=== PATIENT | female | born 1985 | race Two or more races ===

== ENCOUNTER 2017-04-14 19:27 | Emergency (ER) | payer OTHER ==
[2017-04-14 19:33] VITALS: BP 124/74; PULSE 66; TEMP 98.4; BMI 39.2
[2017-04-14] MEDS ORDERED: SODIUM CHLORIDE 500 ML IV STA (20:41)
[2017-04-14] MEDS ORDERED: CLINDAMYCIN 600MG PREMIX IVPB 50 ML IVPB ONE ×2 (20:41→20:55)
--- NOTE | 2017-04-14 20:47 | PDOC ---
History of Present Illness - General Chief Complaint: Abscess Boil Stated Complaint: PAIN, ACUTE Time Seen by Provider: 04/14/17 19:51 History Source: Patient Exam Limitations: No Limitations - History of Present Illness Initial Comments: 04/14/17 20:42 31yo Female patient w/ PmHx: MRSA, breast abscesses presents to ED c/o right breast pain with infection. Patient state 2 weeks ago, she was seen by PMD and given Amoxicillin for small right breast abscess. Patient states symptoms improved, however, 3 days ago symptoms returned worse. She contacted her breast surgeon, but was told to go to nearest ED due to possible cellulitis. Patient denies fever, cough, CP, Back pain, n/v/d, or any other complaints at this time. Timing/Duration: reports: changing over time, getting worse Severity: Yes: moderate Location: reports: torso (Right Breast) Respiratory Risk Factors: denies: no cause identified, exposure to illness, exposure to allergen, foods, insect bite, insect sting, medications, pollen, soaps, other Modifying Factors: worse with: antihistamine, calamine lotion, prednisone, scratching, topical steriods, other Associated Symptoms: denies: denies symptoms, blisters, change in skin texture, edema, fever, flushing, headache, hives, jaundice, malaise, nasal congestion, numbness, pallor, paresthesia, petechiae, rash, sore throat, swelling/mass/lumps , tingling, other Past History - Travel Traveled outside of the country in the last 30 days: No Close contact w/someone who was outside of country & ill: No - Past Medical History Allergies/Adverse Reactions: Allergies Allergy/AdvReac Type Severity Reaction Status Date / Time shellfish derived Allergy Verified 12/10/15 21:21 Home Medications: Ambulatory Orders Ibuprofen [Motrin -] 600 mg PO QID #30 tablet 12/10/15 Cephalexin Monohydrate [Keflex -] 500 mg PO BID #14 capsule 04/14/17 Sulfamethoxazole/Trimethoprim [Bactrim Ds -] 1 tab PO DAILY #10 tablet 04/14/17 Asthma: No Cancer: No Cardiac Disorders: No Diabetes: No HTN: No Seizures: No Thyroid Disease: No - Surgical History Abdominal Surgery: Yes (HERNIA REPAIR.) - Reproductive History (#): 3 Para: 2 Ectopic : Yes Therapeutic (s) & number: No Spontaneous : 1 - Suicide/Smoking/Psychosocial Hx Smoking History: Current every day smoker Have you smoked in the past 12 months: No Number of Cigarettes Smoked Daily: 5 Information on smoking cessation initiated: No Hx Alcohol Use: No Drug/Substance Use Hx: No Hx Substance Use Treatment: No Review of Systems - Review of Systems Able to Perform ROS?: Yes Is the patient limited Norwegian proficient: No Integumentary: Yes: Erythema (Right Breast), Lumps, Other (Tenderness) All Other Systems: Reviewed and Negative *Physical Exam - Vital Signs Last Vital Signs Temp Pulse Resp BP Pulse Ox 98.4 F 66 17 124/74 99 04/14/17 19:30 04/14/17 19:30 04/14/17 19:30 04/14/17 19:30 04/14/17 19:30 - Physical Exam General Appearance: Yes: Nourished, Appropriately Dressed, Mild Distress. No: Apparent Distress, Moderate Distress, Severe Distress Neck: positive: Trachea midline, Supple. negative: Stridor, Lymphadenopathy (R) , Lymphadenopathy (L) Respiratory/Chest: positive: Lungs Clear, Normal Breath Sounds. negative: Chest Tender, Respiratory Distress, Accessory Muscle Use, Labored Respiration, Rapid RR, Rhonchi, Stridor Cardiovascular: positive: Regular Rhythm, Regular Rate Musculoskeletal: positive: Normal Inspection. negative: CVA Tenderness Extremity: positive: Normal Capillary Refill, Normal Inspection, Normal Range of Motion. negative: Pedal Edema, Swelling, Calf Tenderness, Erythema, Inflammation Integumentary: positive: Normal Color, Dry, Warm, Erythema (Right Breast), Other (Right breast with induration beneath areola, moderate redness extending to medial aspect, moderate tenderness. No nipple discharge or drainage, or rippling of breast tissue noted.) Neurologic: positive: traffic recorder II-XII NML intact, Fully Oriented, Alert, Normal Mood/ Affect, Normal Response, Motor Strength 11/26 ED Treatment Course - LABORATORY CBC & Chemistry Diagram: 04/14/17 20:58 04/14/17 20:51 *DC/Admit/Observation/Transfer Diagnosis at time of Disposition: Cellulitis of right breast - Discharge Dispostion Disposition: HOME Condition at time of disposition: Stable Admit: No - Prescriptions Prescriptions: Sulfamethoxazole/Trimethoprim [Bactrim Ds -] 1 tab PO DAILY #10 tablet Cephalexin Monohydrate [Keflex -] 500 mg PO BID #14 capsule - Referrals Referrals: Lamonte Zhu MD [Primary Care Provider] - - Patient Instructions Printed Discharge Instructions: DI for Skin Abscess Additional Instructions: Follow up with your primary care provider and you breast surgeon. Call to schedule appointment. Take medications as prescribed. Take Keflex 500mg every 12 hours (2 tabs) starting tomorrow and Bactrim 1 tablet daily. Print Language: SINHALA
[2017-04-14 21:07] LABS: BASOPHIL 0.6 % (0-2.0); MCH 28.8 pg (25.7-33.7); MCHC 33.4 g/dl (32.0-36.0); MEAN CELL VOLUME 86.2 fl (80-96); NEUTROPHILS 64.9 % (42.8-82.8); PLATELET COUNT 333 K/MM3 (134-434); RDW 13.9 % (11.6-15.6); WHITE BLOOD COUNT 11.6 K/mm3 (4.0-10.0)
[2017-04-14 21:30] LABS: ALBUMIN 3.3 g/dl (3.4-5.0); ANION GAP 6 (8-16); BILIRUBIN,TOTAL 0.2 mg/dL (0.2-1.0); CALCIUM 8.6 mg/dL (8.5-10.1); CO2 25 mmol/L (21-32); CREATININE 0.7 mg/dL (0.55-1.02); GLUCOSE,RANDOM 121 mg/dL (74-106); SGOT/AST 10 U/L (15-37); SGPT/ALT 21 U/L (12-78)
[2017-04-14 21:32] LABS: ALK PHOS 125 U/L (45-117); TOT PROT 6.6 g/dl (6.4-8.2)
[2017-04-14] MEDS ORDERED: CEPHALEXIN MONOHYDRATE 500 MG CAPSULE (UD) PO ONE (21:49)
[2017-04-14] MEDS ORDERED: SULFAMETHOXAZOLE/TRIMETHOPRIM 800MG/160MG D.S. TABLET PO ONE ×2 (21:49→21:50)
[2017-04-14] MEDS ORDERED: CEPHALEXIN MONOHYDRATE 250 MG CAPSULE (FP) ONE (21:55)
[2017-04-14] MEDS ORDERED: SULFAMETHOXAZOLE/TRIMETHOPRIM 800MG/160MG D.S. TABLET ONE (21:55)
== END 2017-04-14 22:04 | disposition home or self-care (01) ==
LOC: JER 19:27
PROC: 3E0337Z Introduction of Electrolytic and Water Balance Substance into Peripheral Vein, Percutaneous Approach (ICD-10-PCS; principal; 2017-04-14)
PROC: 3E03329 Introduction of Other Anti-infective into Peripheral Vein, Percutaneous Approach (ICD-10-PCS; 2017-04-14)
DX: N61.1 Abscess of the breast and nipple (principal); Z86.14 Personal history of Methicillin resistant Staphylococcus aureus infection; F17.210 Nicotine dependence, cigarettes, uncomplicated
CPT/HCPCS: 36415; 80053; 85025; 87040; 99283-25

== ENCOUNTER 2018-09-11 11:17 | Day surgery (SDC) | payer OTHER ==
[2018-09-11 11:31] VITALS: BMI 43.0
--- NOTE | 2018-09-11 11:52 | PDOC ---
History of Present Illness - General Chief Complaint: Vaginal Bleeding Stated Complaint: VAGINAL SPOTTING POSTIVE PREG Time Seen by Provider: 09/11/18 11:51 History Source: Patient Exam Limitations: No Limitations - History of Present Illness Initial Comments: 09/11/18 12:46 33 year old female A1 with PMH ectopic , irregular periods presented to ED for left sided pelvic pain x1 week and positive urine test. Pt stated "I just want to know if it is an ectopic or not, I am going to terminate this anyways." Pt admitted vaginal spotting today, nipple tenderness x5 days. Pt stated she took positive home test x2 days ago. LMP early August, lasted 3 days, shorter than normal. LMP before August was May when she had her period two times, each lasting 7 days. [facility] Past History - Past Medical History Allergies/Adverse Reactions: Allergies Allergy/AdvReac Type Severity Reaction Status Date / Time shellfish derived Allergy Verified 09/11/18 11:28 Home Medications: Ambulatory Orders Ibuprofen [Motrin -] 600 mg PO QID #30 tablet 12/10/15 Cephalexin Monohydrate [Keflex -] 500 mg PO BID #14 capsule 04/14/17 Sulfamethoxazole/Trimethoprim [Bactrim Ds -] 1 tab PO DAILY #10 tablet 04/14/17 Asthma: No Cancer: No Cardiac Disorders: No COPD: No Diabetes: No HTN: No Seizures: No Thyroid Disease: No - Surgical History Abdominal Surgery: Yes (HERNIA REPAIR.) - Reproductive History (#): 3 Para: 2 Ectopic : Yes Therapeutic (s) & number: No Spontaneous : 1 - Suicide/Smoking/Psychosocial Hx Smoking History: Former smoker Have you smoked in the past 12 months: No Number of Cigarettes Smoked Daily: 5 If you are a former smoker, when did you quit?: 1.5 years ago Information on smoking cessation initiated: No Hx Alcohol Use: No Drug/Substance Use Hx: No Hx Substance Use Treatment: No Review of Systems - Review of Systems Able to Perform ROS?: Yes Comments:: 09/11/18 12:48 General: denied fever, chills, night sweats, generalized weakness. HEENT: denied sore throat, rhinorrhea, ear pain. Heart: denied chest pain, palpitations, syncope, lower extremity swelling, diaphoresis. Respiratory: denied shortness of breath, cough, sputum production, hemoptysis. Abdomen: denied abdominal pain, nausea, vomiting, diarrhea, constipation, blood in stool. : admitted to vaginal spotting, left pelvic pain, nipple tenderness. denied dysuria, increased urinary frequency, hematuria, urinary incontinence, flank pain. Back: denied back pain. Musculoskeletal: denied joint pain, muscle pain, joint swelling. Neurological: denied headache, dizziness, numbness, tingling, weakness. Skin: denied rash, laceration, abrasion. *Physical Exam - Vital Signs Last Vital Signs Temp Pulse Resp BP Pulse Ox 98.8 F 66 18 120/62 97 09/11/18 11:28 09/11/18 11:28 09/11/18 11:28 09/11/18 11:28 09/11/18 11:28 - Physical Exam Comments: 09/11/18 12:49 Constitutional: Well-nourished, Well-developed, appearing stated age. HEENT: head is normocephalic, atraumatic. EOMI. PERRLA. Neck: supple. Full ROM. Heart: regular rhythm. no murmurs, rubs or gallops. Lungs: clear to auscultation bilaterally. no crackles, rhonchi or wheezing. no stridor. Abdomen: soft. mild LLQ tenderness to palpation. normal bowel sounds. no rebound , guarding, masses. Pelvic: normal external genitalia. normal vaginal canal. cervix unable to be competely visualized secondary to body habitus. no blood in vault. no CMT. no adnexal tenderness bilaterally. Extremities: Peripheral pulses intact. No lower extremity edema. Neurological: CN 2-12 grossly intact. Moves all four extremities. Psych: awake, alert, oriented x3. Follows commands. Answers questions appropriately. Moderate Sedation - Procedure Monitoring Vital Signs: Procedure Monitoring Vital Signs Temperature 98.8 F 09/11/18 11:28 Pulse Rate 66 09/11/18 11:28 Respiratory Rate 18 09/11/18 11:28 Blood Pressure 120/62 09/11/18 11:28 O2 Sat by Pulse Oximetry (%) 97 09/11/18 11:28 ED Treatment Course - LABORATORY CBC & Chemistry Diagram: 09/11/18 12:36 09/11/18 12:36 Medical Decision Making - Medical Decision Making 09/11/18 12:50 33 year old female A1 with PMH ectopic presented to ED for left sided pelvic pain x1 week, nipple tenderness x5 days, vaginal spotting today. Pt stated she plans to terminate this . Initial Vital Signs Temp Pulse Resp BP Pulse Ox 98.8 F y 66 18 y 120/62 97 09/11/18 11:28 09/11/18 11:28 09/11/18 11:28 09/11/18 11:28 09/11/18 11:28 Afebrile. No tachycardia. No tachypnea. No hypotension. No hypoxia on room air. o Labs ordered: CBC, CMP, beta quant, T/S, coags c Imaging ordered: TVUS g Medications ordered: tylenol 650 mg PO o Past T/S: B+ - Will repeat - Expect to not give Rhogam 09/11/18 13:13 CBC WBC 9.3 K/mm3 (4.0-10.0) 09/11/18 12:36 RBC 4.81 M/mm3 (3.60-5.2) 09/11/18 12:36 Hgb 14.1 GM/dL (10.7-15.3) 09/11/18 12:36 Hct 41.2 % (32.4-45.2) 09/11/18 12:36 MCV 85.8 fl (80-96) 09/11/18 12:36 MCH 29.4 pg (25.7-33.7) 09/11/18 12:36 MCHC 34.3 g/dl (32.0-36.0) 09/11/18 12:36 RDW 14.4 % (11.6-15.6) 09/11/18 12:36 Plt Count 333 K/MM3 (134-434) 09/11/18 12:36 MPV 7.7 fl (7.5-11.1) 09/11/18 12:36 Absolute Neuts (auto) 6.3 K/mm3 (1.5-8.0) 09/11/18 12:36 Neutrophils % 67.0 % (42.8-82.8) 09/11/18 12:36 Lymphocytes % 28.4 % (8-40) 09/11/18 12:36 Monocytes % 2.9 % (3.8-10.2) L 09/11/18 12:36 Eosinophils % 1.3 % (0-4.5) 09/11/18 12:36 Basophils % 0.4 % (0-2.0) 09/11/18 12:36 Nucleated RBC % 0 % (0-0) 09/11/18 12:36 No leukocytosis. No anemia. Urine Test Results Urine Color Yellow 09/11/18 12:32 Urine Appearance Slcloudy 09/11/18 12:32 Urine pH 7.0 (5.0-8.0) 09/11/18 12:32 Ur Specific [place] 1.025 (1.010-1.035) 09/11/18 12:32 Urine Protein Negative (NEGATIVE) 09/11/18 12:32 Urine Glucose (UA) Negative (NEGATIVE) 09/11/18 12:32 Urine Ketones Negative (NEGATIVE) 09/11/18 12:32 Urine Blood Negative (NEGATIVE) 09/11/18 12:32 Urine Nitrite Negative (NEGATIVE) 09/11/18 12:32 Urine Bilirubin Negative (<2.0 mg/dL) 09/11/18 12:32 Ur Leukocyte Esterase Negative (NEGATIVE) 09/11/18 12:32 Negative for UTI. No blood in urine. 09/11/18 13:26 INR, PTT INR 1.03 (0.83-1.09) 09/11/18 12:36 Normal coags. 09/11/18 13:43 c TVUS report: left adnexal ectopic at 6 weeks with gestational sac, pole and yolk sac. HR 142 bpm. no free pelvic fluid. - Pending beta Quant EKG ordered for admission. 09/11/18 14:03 CMP Sodium 137 mmol/L (136-145) 09/11/18 12:36 Potassium 4.1 mmol/L (3.5-5.1) 09/11/18 12:36 Chloride 104 mmol/L (98-107) 09/11/18 12:36 Carbon Dioxide 26 mmol/L (21-32) 09/11/18 12:36 Anion Gap 7 MMOL/L (8-16) L 09/11/18 12:36 BUN 9 mg/dL (7-18) 09/11/18 12:36 Creatinine 0.7 mg/dL (0.55-1.3) 09/11/18 12:36 Creat Clearance w eGFR > 60 (>60) 09/11/18 12:36 Random Glucose 101 mg/dL (74-106) 09/11/18 12:36 Calcium 8.4 mg/dL (8.5-10.1) L 09/11/18 12:36 Total Bilirubin 0.3 mg/dL (0.2-1) 09/11/18 12:36 AST 14 U/L (15-37) L 09/11/18 12:36 ALT 25 U/L (13-61) 09/11/18 12:36 Alkaline Phosphatase 106 U/L (45-117) 09/11/18 12:36 Total Protein 7.3 g/dl (6.4-8.2) 09/11/18 12:36 Albumin 3.7 g/dl (3.4-5.0) 09/11/18 12:36 Beta HCG, Quant y 5440.7 mIU/ml 09/11/18 12:36 No electrolyte abnormalities. No DAISY. No transaminitis. o B-quant >5000. r OB air pollution engineer paged. EKG performed at 1357: rate 61, regular rhythm, low voltage, normal axis, nonspecific ST changes. 09/11/18 14:15 Vital Signs Temperature 98.2 F 09/11/18 14:09 Pulse Rate y 68 09/11/18 14:09 Respiratory Rate 18 09/11/18 14:09 Blood Pressure y 120/64 09/11/18 14:09 O2 Sat by Pulse Oximetry (%) 99 09/11/18 14:09 Pt hemodynamically stable. Reported mild pain. No increase in vaginal bleeding from spotting. Ectopic likely not ruptured - no anemia, no vital sign changes, no free fluid in pelvis on US. 09/11/18 14:[address] Hennessy about the case, she stated she will come to ED to evaluate the patient. 09/11/18 15:29 Dr. Hennessy at bedside for evaluation of patient. 09/11/18 15:36 Dr. Hennessy recs surgery. Pt last ate at 1300 today. Surgery planned for 2100 today. Pt admitted via [facility]. T/S - B+ - No Rhogam needed 09/11/18 16:31 Dr. Hennessy stated surgery is an emergency procedure and will be performed now. Pt informed. *DC/Admit/Observation/Transfer Diagnosis at time of Disposition: Ectopic - Discharge Dispostion Condition at time of disposition: Guarded Decision to Admit order: Yes - Referrals - Patient Instructions - Post Discharge Activity
--- NOTE | 2018-09-11 11:57 | PDOC ---
Attending Attestation - Resident Resident Name: Maryanne Lane - ED Attending Attestation I have performed the following: I have examined & evaluated the patient, The case was reviewed & discussed with the resident, I agree w/resident's findings & plan, Exceptions are as noted - HPI HPI: 33 yo F history prior ectopic presents with positive home test, LLQ pain. She states it felt similar to her prior ectopic, so she sought evaluation. Denies vomiting, diarrhea, fever. Currently pain is minimal. + Spotting. - Physicial Exam PE: GENERAL: Awake, alert, and fully oriented, in no acute distress HEAD: No signs of trauma EYES: PERRLA, EOMI, sclera anicteric, conjunctiva clear ENT: Auricles normal inspection, hearing grossly normal, nares patent, oropharynx clear without exudates. Moist mucosa NECK: Normal ROM, supple, no lymphadenopathy, JVD, or masses LUNGS: Breath sounds equal, clear to auscultation bilaterally. No wheezes, and no crackles HEART: Regular rate and rhythm, normal S1 and S2, no murmurs, rubs or gallops ABDOMEN: Soft, nontender, normoactive bowel sounds. No guarding, no rebound. No masses EXTREMITIES: Normal range of motion, no edema. No clubbing or cyanosis. No cords, erythema, or tenderness NEUROLOGICAL: Cranial nerves II through XII grossly intact. Normal speech, normal gait. Motor and sensation intact SKIN: Warm, Dry, normal turgor, no rashes or lesions noted. - Medical Decision Making Pt found to have L ectopic with FHM. Will d/w test preparer. Last ectopic was managed at [facility], patient does not have a test preparer at this hospital.
[2018-09-11 13:06] LABS: BASO % 0.4 % (0-2.0); EOS % 1.3 % (0-4.5); HEMATOCRIT 41.2 % (32.4-45.2); HEMOGLOBIN 14.1 GM/dL (10.7-15.3); LYMPH % 28.4 % (8-40); MCH 29.4 pg (25.7-33.7); MCHC 34.3 g/dl (32.0-36.0); MEAN CELL VOLUME 85.8 fl (80-96); MEAN PLT VOLUME 7.7 fl (7.5-11.1); MONO % 2.9 % (3.8-10.2); PLATELET COUNT 333 K/MM3 (134-434); RBC 4.81 M/mm3 (3.60-5.2); RDW 14.4 % (11.6-15.6); WHITE BLOOD COUNT 9.3 K/mm3 (4.0-10.0)
[2018-09-11 13:10] LABS: URINE APPEARANCE SLCLOUDY; URINE BILIRUBIN NEGATIVE (<2.0 mg/dL); URINE COLOR YELLOW; URINE GLUCOSE (UA) NEGATIVE (NEGATIVE); URINE KETONE NEGATIVE (NEGATIVE); URINE LEUK ESTERASE NEGATIVE (NEGATIVE); URINE NITRITE NEGATIVE (NEGATIVE); URINE PROTEIN NEGATIVE (NEGATIVE)
[2018-09-11 13:21] LABS: INR 1.03 (0.83-1.09); PROTHROMBIN TIME (PATIENT) 12.2 SEC (9.7-13.0)
[2018-09-11 13:24] LABS: ACTIVATED PTT 29.2 SECONDS (25.2-36.5)
[2018-09-11] MEDS ORDERED: ACETAMINOPHEN 325 MG TABLET (FP) PO ONE (13:33)
[2018-09-11 13:41] LABS: ALBUMIN 3.7 g/dl (3.4-5.0); ALK PHOS 106 U/L (45-117); ANION GAP 7 MMOL/L (8-16); BILIRUBIN,TOTAL 0.3 mg/dL (0.2-1); BLOOD UREA NITROGEN 9 mg/dL (7-18); CALCIUM 8.4 mg/dL (8.5-10.1); CHLORIDE 104 mmol/L (98-107); CO2 26 mmol/L (21-32); CREATININE 0.7 mg/dL (0.55-1.3); GLUCOSE,RANDOM 101 mg/dL (74-106); POTASSIUM 4.1 mmol/L (3.5-5.1); SGOT/AST 14 U/L (15-37); SGPT/ALT 25 U/L (13-61); SODIUM 137 mmol/L (136-145); TOT PROT 7.3 g/dl (6.4-8.2)
[2018-09-11] MEDS ORDERED: ACETAMINOPHEN 325 MG TABLET (FP) ONE (14:34)
--- NOTE | 2018-09-11 16:31 | CON.OBG ---
Consult Consult Specialty:: FURNITURE FINISHER Reason for Consultation:: Ectopic - History of Present Illness Chief Complaint: Abdominal pain in History of Present Illness: 33 year old female A1 with PMH ectopic , irregular periods presented to ED for left sided pelvic pain x1 week and positive urine test. Pt stated "I just want to know if it is an ectopic or not, I am going to terminate this anyways." Pt admitted vaginal spotting today, nipple tenderness x5 days. Pt stated she took positive home test x2 days ago. LMP early August, lasted 3 days, shorter than normal. LMP before August was May when she had her period two times, each lasting 7 days. [facility] I came to see patient; she's sitting comfortably on a chair. She denies any vaginal bleeding except for abdominal pain. - History Source History Provided By: Patient Limitations to Obtaining History: No Limitations - Past Medical History ...LMP: 02/22/15 ...: Yes ...: 5 ...Para: 3 Infectious Disease: Yes: STD's (trichomonas, txed) - Past Surgical History Additional Surgical History: Prior Laparoscopic salpingostomy - Alcohol/Substance Use Hx Alcohol Use: No History of Substance Use: reports: None - Smoking History Smoking history: Former smoker Have you smoked in the past 12 months: No Aproximately how many cigarettes per day: 5 If you are a former smoker, when did you quit?: 1.5 years ago - Social History Usual Living Arrangement: With Significant Other History of Recent Travel: No Home Medications - Allergies Allergies/Adverse Reactions: Allergies Allergy/AdvReac Type Severity Reaction Status Date / Time shellfish derived Allergy Verified 09/11/18 11:28 - Home Medications Home Medications: Ambulatory Orders Ibuprofen [Motrin -] 600 mg PO QID #30 tablet 12/10/15 Cephalexin Monohydrate [Keflex -] 500 mg PO BID #14 capsule 04/14/17 Sulfamethoxazole/Trimethoprim [Bactrim Ds -] 1 tab PO DAILY #10 tablet 04/14/17 Family Disease History - Family Disease History Family History: Unremarkable Review of Systems - Review of Systems Constitutional: reports: No Symptoms Eyes: reports: No Symptoms HENT: reports: No Symptoms Neck: reports: No Symptoms Cardiovascular: reports: No Symptoms Respiratory: reports: No Symptoms Gastrointestinal: reports: No Symptoms Genitourinary: reports: Pain Breasts: reports: No Symptoms Reported Musculoskeletal: reports: No Symptoms Integumentary: reports: No Symptoms Neurological: reports: No Symptoms Endocrine: reports: No Symptoms Hematology/Lymphatic: reports: No Symptoms Psychiatric: reports: No Symptoms Pain Intensity: 3 Physical Exam-CALIBRATOR BAROMETERS Vital Signs: Vital Signs Temperature 98.2 F 09/11/18 14:09 Pulse Rate 68 09/11/18 14:09 Respiratory Rate 18 09/11/18 14:09 Blood Pressure 120/64 09/11/18 14:09 O2 Sat by Pulse Oximetry (%) 99 09/11/18 14:09 Constitutional: Yes: Well Nourished Eyes: Yes: Conjunctiva Clear HENT: Yes: Atraumatic Neck: Yes: Supple Cardiovascular: Yes: Regular Rate and Rhythm Respiratory: Yes: Regular Gastrointestinal: Yes: Normal Bowel Sounds Pelvis: Yes: WNL External Genitalia: Yes: Normal Vaginal Exam: Yes: Normal Cervix: Yes: Cerv Motion Tenderness Musculoskeletal: Yes: WNL Extremities: Yes: WNL Neurological: Yes: Alert, Oriented ...Motor Strength: WNL Psychiatric: Yes: Alert, Oriented Labs: CBC, BMP 09/11/18 12:36 09/11/18 12:36 Assessment/Plan Tubal Pre op for laparoscopic salpingectomy Consent signed Anesthesia to see patient
[2018-09-11] MEDS ORDERED: PROPOFOL 20 ML ONE (16:55)
[2018-09-11] MEDS ORDERED: SUCCINYLCHOLINE CHLORIDE 200 MG/10 ML VIAL ONE (16:56)
[2018-09-11] MEDS ORDERED: MIDAZOLAM HCL 2 MG/2 ML SINGLE DOSE VIAL ONE (16:56)
[2018-09-11] MEDS ORDERED: ROCURONIUM BROMIDE 50 MG/5 ML VIAL ONE (17:20)
[2018-09-11] MEDS ORDERED: ceFAZolin SODIUM 1 GM VIAL ONE (17:26)
[2018-09-11] MEDS ORDERED: DEXAMETHASONE SOD PHOSPHATE 4 MG/1 ML VIAL ONE (17:59)
[2018-09-11] MEDS ORDERED: GLYCOPYRROLATE 0.2 MG/1 ML VIAL ONE (18:02)
[2018-09-11] MEDS ORDERED: NEOSTIGMINE METHYLSULFATE 0.5 MG/ML - 10 ML MDV ONE (18:02)
--- NOTE | 2018-09-11 18:17 | OP ---
Operative Note - Note: Operative Date: 09/11/18 Pre-Operative Diagnosis: Left tubal Operation: Laparoscopic left salpingectomy Findings: Left tubal Post-Operative Diagnosis: Same as Pre-op Surgeon: Zoe Hennessy Short Story Writer: Storm Tucker Anesthesia: General Specimens Removed: Left fallopian tube Estimated Blood Loss (mls): 5
--- NOTE | 2018-09-11 18:19 | SURG ---
Surgery Service Center Representative Note Service Center Representative: Storm Tucker PA-C Date of Service: 09/11/18 Diagnosis: Ectopic Procedure: Laprascopic LEFT salpingectomy I was present for the entirety of the operative procedure. For further detail, please refer to operative report. Visit type - Case Type Case Type: ED Admission - Emergency Emergency Visit: Yes Care time: The patient presented to the Emergency Department on the above date and was hospitalized for further evaluation of their emergent condition. - New patient This patient is new to me today: Yes Date on this admission: 09/11/18
[2018-09-11] MEDS ORDERED: oxyCODONE HCL 5 MG TABLET PO PRN (18:20)
[2018-09-11] MEDS ORDERED: ONDANSETRON 4 MG/2 ML VIAL IVPUSH PRN (18:20)
[2018-09-11] MEDS ORDERED: ACETAMINOPHEN INJECTION 100 ML IVPB ONE (18:23)
[2018-09-11] MEDS ORDERED: ACETAMINOPHEN 1000 MG/100 ML VIAL (NON FORMULARY) IVPB ONE (18:30)
[2018-09-11] MEDS ORDERED: LACTATED RINGERS SOLUTION 1,000 ML IV SCH (18:30)
[2018-09-11 23:34] VITALS: BP 114/59; PULSE 90; TEMP 98.7
--- NOTE | 2018-09-12 11:04 | EKG ---
Test Reason : Blood Pressure : / mmHG Vent. Rate : 061 BPM Atrial Rate : 061 BPM P-R Int : 130 ms QRS Dur : 088 ms QT Int : 414 ms P-R-T Axes : 061 007 -19 degrees QTc Int : 416 ms NORMAL SINUS RHYTHM LOW VOLTAGE QRS BORDERLINE ECG WHEN COMPARED WITH ECG OF 02-APR-2005 16:48, T WAVE INVERSION MORE EVIDENT IN INFERIOR LEADS T WAVE AMPLITUDE HAS DECREASED IN ANTERIOR LEADS Confirmed by MD RONA, TASIA ([id number]) on 09/12/2018 11:04:08 AM Referred By: Confirmed By:TASIA REA MD
--- NOTE | 2018-09-13 13:18 | PATH ---
Surgical Pathology Report Patient Name: CHRISTOPHER PATTON Med. Rec. #: [id number] /Age/Gender: 1985 (Age: 33) / F Account: [id number] Location: AMBULATORY SURG Taken: 09/11/2018 Received: 09/12/2018 Reported: 09/13/2018 Physicians: Zoe Hennessy M.D. PHYSICIAN EMERGENCY DEPT Specimen(s) Received LEFT FALLOPIAN TUBE, ECTOPIC Clinical History Ectopic Final Diagnosis FALLOPIAN TUBE, LEFT, LAPAROSCOPIC SALPINGECTOMY: CHORIONIC VILLI IN A BACKGROUND OF HEMORRHAGE PRESENT WITHIN THE FALLOPIAN TUBE, CONSISTENT WITH ECTOPIC . Electronically Signed Catina Ayers M.D. Gross Description Received in formalin labeled "left fallopian tube," is a 5 cm in length dilated, fimbriated fallopian tube. The outer surface is newton purple and smooth. Sectioning reveals a dilated lumen containing blood clot. No definitive villous tissue or somatic tissue is identified. Music Education Director sections are submitted in 3 cassettes as follows: 1-fimbria; 2-3-cross sections of fallopian tube. /09/12/2018 [facility]09/12/2018
--- NOTE | 2018-09-16 08:29 | OP ---
DATE OF OPERATION: 09/11/2018 PREOPERATIVE DIAGNOSIS: Ectopic . POSTOPERATIVE DIAGNOSIS: Left tubal ligation ectopic . SURGEON: Zoe Hennessy MD LINING MAKER: GISELL Moore ANESTHESIA: General. COMPLICATIONS: None. ESTIMATED BLOOD LOSS: 5 mL. DESCRIPTION OF PROCEDURE: The patient was taken to the operating room where general anesthesia was administered. The patient was then placed in lithotomy position. She was then prepped and draped in proper sterile fashion. A weighted speculum was placed in the vagina. The anterior lip of the cervix was grasped with a single-tooth tenaculum. Then the cervical was then sequentially dilated with Robert dilators. A HUMI uterine manipulator was then gently introduced into the uterine cavity. The Johnson catheter was then inserted. Attention was then turned to the abdomen where an infraumbilical skin incision was made. Veress needle was then inserted while tenting the abdominal wall. Then intraoperative placement was confirmed then the trocars were then gently introduced into the cavity while tenting the abdominal wall. The intraoperative peritoneal placement was confirmed by use of a water-filled syringe and insufflation of CO2 gas. The trocar and sleeve were gently introduced into the uterine cavity. Then a 2nd and 3rd trocar and sleeve were then gently introduced into the uterine cavity 5 mm away from the midline on each side. Intraoperative peritoneal placement was confirmed. A survey of the patient's abdomen revealed a left tubal . Using the Kleppinger, the left tube was excised, and then on the right side the Endo bag was introduced, and the tube was placed in the Endo bag, and it was removed from the abdomen with the use of the Endo bag. Using the Noe-Yuriy, the fascia on the side of the Endo bag was closed using Endo sutures. The other incisions were closed using 3-0 Vicryl. The patient tolerated the procedure well. The patient was then taken to PACU in stable condition. PATHOLOGY: Left tube and left tubal . ZOE HENNESSY M.D. ARUNA/[id number]
== END 2018-09-11 21:00 | disposition home or self-care (01) ==
LOC: JER 11:17 → JASUSAT 15:58 → J3W 19:31 → JASUSAT 21:00
PROVIDERS: ATTEND Obstetrics & Gynecology
PROC: 0UT64ZZ Resection of Left Fallopian Tube, Percutaneous Endoscopic Approach (ICD-10-PCS; 2018-09-11)
PROC: 10T24ZZ Resection of Products of Conception, Ectopic, Percutaneous Endoscopic Approach (ICD-10-PCS; principal; 2018-09-11 17:26)
DX: O00.102 Left tubal pregnancy without intrauterine pregnancy (principal)
CPT/HCPCS: 36415; 76817-TC; 80053; 81003; 84702; 85025; 85610; 85730; 86850; 86900; 86901; 87086; 88305-TC; 93005; 93010; 94760; 99285-25; J0131

== ENCOUNTER 2018-09-29 11:55 | Emergency (ER) | payer SELFPAY ==
[2018-09-29 12:17] VITALS: BP 112/53; PULSE 60; TEMP 98.2; BMI 43.0
[2018-09-29] MEDS ORDERED: IBUPROFEN 400 MG TABLET (FP) PO ONE ×2 (13:52→14:14)
[2018-09-29 14:14] LABS: HCG,QUALITATIVE URINE Negative
[2018-09-29 14:25] LABS: URINE APPEARANCE CLEAR; URINE BILIRUBIN NEGATIVE (<2.0 mg/dL); URINE COLOR LTYELLOW; URINE GLUCOSE (UA) NEGATIVE (NEGATIVE); URINE KETONE NEGATIVE (NEGATIVE); URINE LEUK ESTERASE NEGATIVE (NEGATIVE); URINE NITRITE NEGATIVE (NEGATIVE); URINE PROTEIN NEGATIVE (NEGATIVE)
[2018-09-29 14:28] LABS: EPI CELLS FEW /HPF (FEW); URINE MUCUS RARE
--- NOTE | 2018-09-29 14:36 | PDOC ---
History of Present Illness - General Chief Complaint: Pain, Acute Stated Complaint: LWR RT ABD PAIN SP SURGERY Q 2WK Time Seen by Provider: 09/29/18 13:45 History Source: Patient Exam Limitations: No Limitations - History of Present Illness Travel History: No Initial Comments: 09/29/18 14:06 33 Year old female status post ectopic with right salpingectomy performed on 09/[address] Alas presents with fluid leaking from incision of the right side. Patient also states palpable bump without fever, chills, urinary or bowel complaints. Patient denies odor or purulent drainage from the opening Timing/Duration: reports: constant Quality: reports: mild Abdominal Pain Onset Location: reports: RLQ Pain Radiation: reports: no radiation Activities at Onset: reports: none Aggravating Factors: improves with: Exertion Alleviating Factors: improves with: Rest Past History - Travel Traveled outside of the country in the last 30 days: No Close contact w/someone who was outside of country & ill: No - Past Medical History Allergies/Adverse Reactions: Allergies Allergy/AdvReac Type Severity Reaction Status Date / Time shellfish derived Allergy Verified 09/29/18 12:09 Home Medications: Ambulatory Orders Sulfamethoxazole/Trimethoprim [Bactrim Ds -] 1 tab PO BID #14 tablet 09/29/18 Sulfamethoxazole/Trimethoprim [Bactrim Ds -] 1 tab PO BID #14 tablet 09/29/18 Asthma: No Cancer: No Cardiac Disorders: No COPD: No Diabetes: No HTN: No Seizures: No Thyroid Disease: No - Surgical History Abdominal Surgery: Yes (HERNIA REPAIR.) - Reproductive History (#): 3 Para: 2 Ectopic : Yes Therapeutic (s) & number: No Spontaneous : 1 - Immunization History Immunization Up to Date: Yes - Suicide/Smoking/Psychosocial Hx Smoking History: Never smoked Have you smoked in the past 12 months: No Number of Cigarettes Smoked Daily: 5 If you are a former smoker, when did you quit?: 1.5 years ago Hx Alcohol Use: No Drug/Substance Use Hx: No Hx Substance Use Treatment: No Patient Lives Alone: No Lives with/in: spouse/SO Review of Systems - Review of Systems Able to Perform ROS?: Yes Constitutional: No: Symptoms Reported Respiratory: No: Symptoms reported Cardiac (ROS): No: Symptoms Reported ABD/GI: Yes: Other : No: Symptoms Reported Musculoskeletal: No: Symptoms Reported Integumentary: Yes: Lumps Neurological: No: Symptoms reported *Physical Exam - Vital Signs Last Vital Signs Temp Pulse Resp BP Pulse Ox 98.2 F 60 17 112/53 L 100 09/29/18 12:09 09/29/18 12:09 09/29/18 12:09 09/29/18 12:09 09/29/18 12:09 - Physical Exam General Appearance: Yes: Nourished, Appropriately Dressed. No: Apparent Distress Gastrointestinal/Abdominal: positive: Normal Bowel Sounds, Soft, Tenderness (At pinhead-sized circular opening to the right side of her incision. A palpable 2 x 1 cm semi-firm mass noted. Patient with pinkish purulent drainage expressible from opening. No foul odor or increased warmth or erythema to area ) Integumentary: positive: Normal Color, Warm, Moist Neurologic: positive: Motor Strength 5/5 (ambulatory) Moderate Sedation - Procedure Monitoring Vital Signs: Procedure Monitoring Vital Signs Temperature 98.2 F 09/29/18 12:09 Pulse Rate 60 09/29/18 12:09 Respiratory Rate 17 09/29/18 12:09 Blood Pressure 112/53 L 09/29/18 12:09 O2 Sat by Pulse Oximetry (%) 100 09/29/18 12:09 ED Treatment Course - ADDITIONAL ORDERS Additional order review: Laboratory Results 09/29/18 13:50 Urine Color Ltyellow Urine Appearance Clear Urine pH 7.0 Ur Specific Ray 1.024 Urine Protein Negative Urine Glucose (UA) Negative Urine Ketones Negative Urine Blood 1+ H Urine Nitrite Negative Urine Bilirubin Negative Urine Urobilinogen 2.0 H Ur Leukocyte Esterase Negative Urine WBC (Auto) 2 Urine RBC (Auto) 8 Ur Epithelial Cells Few Urine Mucus Rare Urine HCG, Qual Negative - RADIOLOGY Radiology Studies Ordered: Category Date Time Status SOFT TISSUE ABDOMEN US [US] Stat Ultrasound 09/29/18 14:32 Ordered - Medications Given in the ED: ED Medications Discontinued Medications Generic Name Dose Route Start Last Admin Trade Name Freq PRN Reason Stop Dose Admin Ibuprofen 800 mg 09/29/18 13:52 09/29/18 14:19 Motrin - PO 09/29/18 13:53 800 mg ONCE ONE Administration Medical Decision Making - Medical Decision Making 09/29/18 14:10 Chief complaint:. Patient status post right salpingectomy secondary to ectopic on 09/11 complaining of opening to incision along with drainage. Patient also complains of tenderness to site Exam: Noted pinkish prevent drainage from pinhead size opening.+ semi-firm 2 x 1 cm mass under incision. Plan. Urinalysis urine wound culture and soft tissue of the abdomen to rule out abscess versus seroma 09/29/18 16:25 Laboratory Tests 09/29/18 13:50 Urine Blood 1+ H Urine Nitrite Negative Urine Bilirubin Negative Urine Urobilinogen 2.0 H Urine WBC (Auto) 2 Urine RBC (Auto) 8 Urine HCG, Qual Negative No discrete this drainable collection is identified in the right lower quadrant , anterior abdominal wall, or region of interest. There is an ill-defined superficial heterogenous oval shaped density measuring 2 x 0.6 cm. It is also very superficial hypoechoic density measuring 4 mm that represents minimal fluid. 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 Patient will be given Bactrim for discharge Strict instructions to follow-up upon discharge. Patient be given gauze which she states can't changes daily if she notices any redness swelling or increased pain she must return to the ED for abdominal CT and surgical consultation *DC/Admit/Observation/Transfer Diagnosis at time of Disposition: Open abdominal wall wound - Discharge Dispostion Disposition: HOME Condition at time of disposition: Good - Prescriptions Prescriptions: Sulfamethoxazole/Trimethoprim [Bactrim Ds -] 1 tab PO BID #14 tablet Sulfamethoxazole/Trimethoprim [Bactrim Ds -] 1 tab PO BID #14 tablet - Referrals Referrals: Lamonte Zhu MD [Primary Care Provider] - Zoe Hennessy MD [Staff Physician] - - Patient Instructions Printed Discharge Instructions: DI for Wound Infection Additional Instructions: Wear cotton underwear and cotton loosefitting clothing to allow aeration. Please take Bactrim as prescribed. Please also follow up with Dr. Hennessy. Please return to the ED if symptoms worsen and change bandages daily - Post Discharge Activity Forms/Work/School Notes: Back to Work
== END 2018-09-29 17:05 | disposition home or self-care (01) ==
LOC: JER 11:55
DX: S31.103A Unspecified open wound of abdominal wall, right lower quadrant without penetration into peritoneal cavity, initial encounter (principal); Z87.891 Personal history of nicotine dependence
CPT/HCPCS: 76705; 81003; 81015; 84703; 87070; 87186; 87205; 99283-25

== ENCOUNTER 2021-05-12 04:44 | Day surgery (SDC) | payer OTHER ==
[2021-05-07 16:18] VITALS: BMI 46.0
[2021-05-12 12:22] VITALS: TEMP 97.4
[2021-05-12 13:06] VITALS: BP 108/64; PULSE 54
== END 2021-05-12 13:17 | disposition home or self-care (01) ==
LOC: JASU-ENDO 04:44
PROVIDERS: ATTEND Internal Medicine Gastroenterology
PROC: 0DB68ZX Excision of Stomach, Via Natural or Artificial Opening Endoscopic, Diagnostic (ICD-10-PCS; principal; 2021-05-12 11:30)
DX: Z01.818 Encounter for other preprocedural examination (principal); K21.9 Gastro-esophageal reflux disease without esophagitis; K29.50 Unspecified chronic gastritis without bleeding; E66.01 Morbid (severe) obesity due to excess calories
CPT/HCPCS: 81025; 88305-TC; 88342-TC

== ENCOUNTER 2022-03-08 18:33 | Emergency (ER) | payer OTHER ==
[2022-03-08 18:44] VITALS: BP 130/70; PULSE 60; RESP 18; TEMP 98.2; BMI 34.5
[2022-03-08] MEDS ORDERED: DIPHTH,PERTUSS(ACELL),TET 0.5 ML DISP.SYRIN IM ONE ×2 (21:09→21:18)
== END 2022-03-08 21:25 | disposition home or self-care (01) ==
LOC: JERFT 18:33
PROC: 3E0234Z Introduction of Serum, Toxoid and Vaccine into Muscle, Percutaneous Approach (ICD-10-PCS; principal; 2022-03-08)
DX: S61.212A Laceration without foreign body of right middle finger without damage to nail, initial encounter (principal); S61.210A Laceration without foreign body of right index finger without damage to nail, initial encounter
CPT/HCPCS: 90471; 90715; 99283-25